=== PATIENT | male | born 1955 | race Two or more races ===

== ENCOUNTER → 2017-08-11 | Outpatient (CLI) | payer BC ==
[~2017-08-11] MED LIST: /WARF25TA PO; /WARF5TA; ACET65TA; COUMADIN; MOTR200T4; NO MEDICATIONS; OXYC1CON PO; PERC5TAB8; PERCOCET PO; TYLE325T5 PO
--- NOTE | 2017-08-11 13:34 | REP ---
Right rib series: Four views. History: Right-sided rib pain, injury in a fall 3 days ago. Findings: There is no evidence of pneumothorax or right-sided infiltrate. On oblique radiograph, there is a cortical step-off of the posterolateral 9th rib which could be a nondisplaced fracture. This is not seen on any other view. This should be correlated with the area of tenderness on exam. Impression: Cortical step-off right posterolateral 9th rib may reflect an acute nondisplaced fracture. Seen on only one view. No other rib abnormality. Signed by Dwayne Martinez MD 08/11/2017 04:13 P
== END ==
LOC: M LRY 12:29
PROVIDERS: ATTEND Physician Assistant
DX: R07.81 Pleurodynia (principal)